=== PATIENT | female | born 1965 | race Hispanic/Latino ===

== ENCOUNTER 2024-12-06 16:07 | Emergency (ER) | payer SELFPAY ==
--- NOTE | ~2024-12-06 | XR_ITS ---
XR chest 1V portable 12/06/2024 18:31 Indication: Cough with dyspnea Procedure: AP portable chest Comparison: No prior studies for comparison. Findings: Right basilar airspace disease, compatible with pneumonia. Consider aspiration. Right-sided ventriculoperitoneal shunt. No significant effusion. No pneumothorax. Heart size upper normal. Impression: 1: Right basilar airspace consolidation, consistent with pneumonia. Consider aspiration in the appropriate clinical setting. Reviewed, dictated and finalized at location A. Impression: 1: Right basilar airspace consolidation, consistent with pneumonia. Consider as piration in the appropriate clinical setting.
--- NOTE | ~2024-12-06 | CT_ITS ---
EXAMINATION: CT brain wo con DATE: 12/06/2024 18:50 INDICATION: Headache TECHNIQUE: Computed tomography (CT) of the head was performed without intravenous contrast. The dose-length product was 605.33 mGy-cm. Automated exposure control and iterative reconstruction technique were employed. COMPARISON: No prior studies for comparison. FINDINGS: Brain parenchymal volume is normal for age. There is a right ventriculoperitoneal shunt in expected position. There is collapse of the right lateral ventricle. Basilar cisterns are patent. There is intracranial atherosclerosis. Normal castillo-white differentiation. No midline shift. No acute infarction, hemorrhage, mass or mass effect. Orbits are symmetric. Paranasal sinuses and mastoids are pneumatized. IMPRESSION: 1. No acute intracranial abnormality. Reviewed, dictated and finalized at location A.
[2024-12-06 16:14] VITALS: BP 141/87; PULSE 68; RESP 16; TEMP 37; O2SAT 97
[2024-12-06 17:25] VITALS: BP 144/60; PULSE 73; RESP 20; O2SAT 96
--- NOTE | 2024-12-06 17:27 | PC.NURSE ---
NELIA Mace at bedside assessing pt. using interpreter.
--- NOTE | 2024-12-06 17:53 | ECG_ITS ---
Test Date: 2024-12-06 18:21:54 Measurements Intervals [place] Rate: 72 P: 31 [place]: 161 QRS: 0 QRSD: 92 T: 1 QT: 396 QTc: 433 Interpretive Statements SINUS RHYTHM LOW QRS VOLTAGE IN PRECORDIAL LEADS PATTERN CONSISTENT WITH PULMONARY DISEASE BORDERLINE ST-T WAVE ABNORMALITY- ANT/INF LEADS BASELINE ARTIFACT- I, II, III, AVR, AVL, AVF, V1 BORDERLINE ECG No previous ECG available for comparison Electronically Signed On 12-06-2024 19:07:04 CDT by Josep Casarez D.O.
--- NOTE | 2024-12-06 17:55 | ED_ITS ---
HPI - SOB/Dyspnea General Chief Complaint: Upper Respiratory Infection Stated Complaint: Cough x 1mth-shortness of breath Time Seen by Provider: 12/06/24 17:07 Mode of arrival: ambulatory Limitations: no limitations History of Present Illness HPI Narrative: 59-year-old female with reported history of diabetes, thyroid disease presents to the emergency department with family at bedside for URI symptoms for the past month. Patient is [place]-speaking and the risk consulting treasury director service was used during her visit. She states for the past month she has had a productive cough with yellow phlegm, pain in her chest with coughing, shortness of breath, pain in her ears, nasal congestion and headache. Patient reports subjective fever but is not taking her temperature. She denies recent surgeries or hospitalizations, hemoptysis, lower extremity edema, history of CAD or CHF, history of COPD or asthma, smoking. Denies family history of CAD or CVA. She states she has tried NyQuil and several at-home remedies without improvement. She states she spoke with her cousin who is concerned that she may have an infection in her lungs. Patient also notes she has a ?device? in her brain that was placed several years ago at a hospital in [place] for an unknown reason. She states she had the ?device? checked at [facility] 1 year ago and was told everything is working properly. Related Data Allergies Allergy/AdvReac Type Severity Reaction Status Date / Time No Known Allergies Allergy Verified 12/06/24 16:09 Review of Systems 2 Review of Systems: All systems reviewed & are unremarkable except as noted in HPI and below Exam 2 Narrative: GENERAL: Well-appearing, well-nourished, and in no acute distress. HEAD: Normocephalic, atraumatic. EYES: PERRLA and EOMI. ENT: Nares clear, no rhinorrhea or epistaxis. Mucous membranes moist. Left TM with serous effusion, no erythema or bulging to the TM. Right TM is castillo nonbulging. Normal bilateral ear canals. Tenderness to the frontal sinuses on palpation NECK: Supple. CHEST: Crackles in right lower lung field. Faint expiratory wheeze in the bilateral upper lung haile. Patient satting 97% on room air in no respiratory distress and speaking full sentences. Coughing on exam. Tenderness to the left sternal border on palpation HEART: Regular rate and rhythm. No murmur heard. Normal peripheral pulses. ABDOMEN: Soft, nontender, nondistended, normal active bowel sounds. EXTREMITIES: Normal range of motion. No edema. Negative Homans bilaterally SKIN: Warm, dry, no rash. NEURO: No focal deficits. Alert and oriented x3 Course Vital Signs Vital signs: Vital Signs Temperature 98.6 F 12/06/24 16:14 Pulse Rate 68 12/06/24 16:14 Respiratory Rate 16 12/06/24 16:14 Blood Pressure 141/87 H 12/06/24 16:14 Pulse Oximetry 97 12/06/24 16:14 Oxygen Delivery Room Air 12/06/24 16:14 Temperature 98.6 F 12/06/24 16:14 Pulse Rate 72 12/06/24 18:14 Respiratory Rate 19 12/06/24 18:14 Blood Pressure 144/60 H 12/06/24 17:25 Pulse Oximetry 96 12/06/24 17:25 Oxygen Delivery Room Air 12/06/24 17:25 MDM - SOB/Dyspnea MDM Narrative Medical decision making narrative: 59-year-old female presents emergency department for URI symptoms for the past month. Patient endorsing nasal congestion, ear pain, productive cough with yellow phlegm, chest pain with coughing, shortness of breath. Vitals with hypertension of 141/87, otherwise unremarkable. Patient is afebrile and nontoxic appearing. She is actively coughing on exam. Chest pain is reproducible. She does have mild expiratory wheeze in her upper lung haile and crackles in the right lower lung field, DuoNeb provided. EKG shows normal sinus rhythm with a rate of 72 ppm, normal VT interval, normal QRS duration, normal QTC, no ST elevations or depressions. Troponin is within normal limits. Lab work shows no leukocytosis and unremarkable chemistries. Viral swabs are negative. Chest x-ray shows concerns for right basilar airspace consolidation consistent with pneumonia. CT brain shows no acute intracranial abnormality. There is a right ventricular peritoneal shunt in expected position. D-dimer within normal limits, wells score is low risk. Patient and family updated on results. Patient reports improvement after DuoNeb and Tylenol. Lung sounds have improved. Presentation consistent with pneumonia and sinusitis. Curb 65 is 0. Pt appropriate for d/c and outpatient f/u. Patient will be started on Augmentin and azithromycin and provided ibuprofen for headache and costochondritis. Patient advised follow-up closely with her PCP and was given strict ED return precautions. Patient and family are agreeable with the plan verbalized understanding. Discharged in stable condition. Lab Data 12/06/24 18:01 12/06/24 18:01 Labs: Lab Results 12/06/24 Range/Units 18:01 WBC 9.2 (4.5-10.0) K/mm3 RBC 4.29 (4.2-5.4) M/mm3 Hgb 12.0 (12.0-15.0) g/dL Hct 38.0 (37.0-47.0) % MCV 88.6 (80-100) fl MCH 28.0 (26-34) pg MCHC 31.6 L (32-36) g/dl RDW 14.1 (11.5-14.5) % Plt Count 235 (150-375) k/mm3 MPV 11.4 H (7.4-10.4) fl Immature Gran % (Auto) 0.4 (0-0.5) % Neut % (Auto) 63.9 (45.5-73.1) % Lymph % (Auto) 22.9 (18.3-44.2) % Keith % (Auto) 10.7 H (2.6-8.5) % Eos % (Auto) 1.8 (0-4.4) % Baso % (Auto) 0.3 (0.2-1.2) % Lymph # (Auto) 2.11 (0.9-3.2) K/mm3 Keith # (Auto) 1.0 H (0.1-0.6) K/mm3 Eos # (Auto) 0.2 (0-0.3) K/mm3 Baso # (Auto) 0.0 (0.0-0.1) K/mm3 Abs Immat Gran (auto) 0.04 H (0.00-0.031) K/mm3 Absolute Neuts (auto) 5.9 (1.3-6.7) K/mm3 Absolute Nucleated RBC 0.000 (0.0-0.012) K/mm3 Nucleated RBC % 0.0 (0.0-0.2) % PT 12.9 (11.1-14.7) Seconds INR 1.0 APTT 26.5 (22.3-36.8) Seconds D-Dimer 0.33 (<0.48) ug/mL Sodium 139 (137-145) mmol/L Potassium 3.9 (3.4-5.0) mmol/L Chloride 105 (98-107) mmol/L Carbon Dioxide 27 (22-30) mmol/L Anion Gap 7 (4-12) mmol/L BUN 15 (7-17) mg/dL Creatinine 0.71 (0.7-1.0) mg/dL Estim Creat Clear Calc 68 ml/min Estimated GFR > 60 (59 - ) Glucose 101 (65-110) mg/dL Calcium 8.9 (8.4-10.2) mg/dL Total Bilirubin 0.4 (0.2-1.3) mg/dL AST 27 (14-36) U/L ALT 20 (6-35) U/L Alkaline Phosphatase 128 H (38-126) U/L Troponin I < 0.012 (0.000-0.034) ng/mL Total Protein 7.7 (6.3-8.2) g/dL Albumin 4.1 (3.5-5.1) g/dL Influenza A (RT-PCR) Negative (Negative) Influenza B (RT-PCR) Negative (Negative) RSV (RT-PCR) Negative (Negative) SARS-CoV-2 RNA (RT-PCR) Negative (Negative) Discharge Plan Discharge Clinical Impression: Costochondritis CAP (community acquired pneumonia) Qualifiers: Laterality: right Lung location: lower lobe of lung Qualified Code(s): J18.9 - Pneumonia, unspecified organism Sinusitis Qualifiers: Sinusitis location: frontal Chronicity: unspecified Qualified Code(s): J32.1 - Chronic frontal sinusitis Patient Disposition: Home Condition: Stable Instructions: Antibiotic Form, Sinusitis (ED), Costochondritis (DC), Pneumonia (ED) Patient Language: [place] Prescriptions: New azithromycin 250 mg tablet See Rx Instructions .ROUTE .COMPLEX Qty: 6 0RF Rx Instructions: For 250 mg dose pack: take 500 mg today (day 1), then 250 mg for 4 days (days 2-5) amoxicillin-pot clavulanate 875-125 mg tablet 1 tablet PO Q12H Qty: 14 0RF ibuprofen 600 mg tablet 600 mg PO Q6H PRN (Reason: pain) Qty: 14 0RF Follow-up/Referrals: Andrew,NELIA Loera [Non-Staff, Family Practice] PHYSICIAN,TECHNOLOGY INFUSION SPECIALIST [Primary Care Provider, Internal Medicine] Quality HEART score for chest pain patients History: slightly suspicious ECG: non specific repolarization disturbance/LBTB/PM Age: > 45 and < 65 years Risk factors: 1 or 2 risk factors Troponin: < or = to 1x normal limit Heart score: 3
[2024-12-06 18:07] VITALS: PULSE 70; RESP 20
[2024-12-06] MEDS: IPRATROPIUM 0.5 MG/ALBUTEROL SULFATE 2.5 MG AMPUL.NEB 3 ML INHALATION (18:07)
[2024-12-06 18:08] LABS: Hematocrit 38.0 % (37.0-47.0); Hemoglobin 12.0 g/dL (12.0-15.0); Immature Granulocyte Percent A 0.4 % (0-0.5); Lymphocytes Absolute Auto 2.11 K/mm3 (0.9-3.2); Mean Corpuscular HGB Conc 31.6 g/dl (32-36); Mean Corpuscular Hemoglobin 28.0 pg (26-34); Mean Corpuscular Volume 88.6 fl (80-100); Nucleated Red Blood Cells Absolute Auto 0.000 K/mm3 (0.0-0.012); Nucleated Red Blood Cells Perc 0.0 % (0.0-0.2); Platelet Count Result 235 k/mm3 (150-375); Red Blood Count 4.29 M/mm3 (4.2-5.4); White Blood Count 9.2 K/mm3 (4.5-10.0)
[2024-12-06 18:14] VITALS: PULSE 72; RESP 19
[2024-12-06 18:20] LABS: Alanine Aminotransferase 20 U/L (6-35); Albumin Level 4.1 g/dL (3.5-5.1); Alkaline Phosphatase 128 U/L (38-126); Anion Gap 7 mmol/L (4-12); Aspartate Amino Transferase 27 U/L (14-36); Bilirubin,Total 0.4 mg/dL (0.2-1.3); Blood Urea Nitrogen 15 mg/dL (7-17); Calcium 8.9 mg/dL (8.4-10.2); Carbon Dioxide 27 mmol/L (22-30); Chloride 105 mmol/L (98-107); Estimated CRCL calculation 68 ml/min; Estimated Glomerular Filt Rate > 60; Glucose 101 mg/dL (65-110); Potassium 3.9 mmol/L (3.4-5.0); Sodium 139 mmol/L (137-145); Total Protein 7.7 g/dL (6.3-8.2)
[2024-12-06] MEDS: ACETAMINOPHEN 500 MG TABLET 1000 MG PO (18:22)
[2024-12-06 18:24] LABS: INR 1.0; Prothrombin Time 12.9 Seconds (11.1-14.7)
[2024-12-06 18:25] LABS: Partial Thromboplastin Time 26.5 Seconds (22.3-36.8)
[2024-12-06 18:30] LABS: Troponin I < 0.012 ng/mL (0.000-0.034)
[2024-12-06 19:09] LABS: Influenza A QL RT-PCR Negative (Negative); Influenza B QL RT-PCR Negative (Negative); RSV RNA, RT-PCR Negative (Negative); SARS-CoV-2 RNA PCR Negative (Negative)
[2024-12-06 19:45] VITALS: BP 140/75; PULSE 75; RESP 18; O2SAT 97
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
[2024-12-06] MEDS: AZITHROMYCIN 500 MG TABLET PO (19:53)
== END 2024-12-06 20:02 | disposition home or self-care (01) ==
PROVIDERS: Emergency Provider Physician Assistant
DX: J18.9 Pneumonia, unspecified organism (principal); J32.1 Chronic frontal sinusitis; M94.0 Chondrocostal junction syndrome [Tietze]; Z20.822 Contact with and (suspected) exposure to COVID-19; E11.9 Type 2 diabetes mellitus without complications; E07.9 Disorder of thyroid, unspecified; R94.31 Abnormal electrocardiogram [ECG] [EKG]
CPT/HCPCS: 36415; 70450; 71045; 80053; 84484; 85025; 85380; 85610; 85730; 87637; 93005; 94640; 99284; A9270